=== PATIENT | female | born 1935 | race Caucasian/White ===

== ENCOUNTER 2019-06-08 09:39 | Observation (INO) ==
[2019-06-08] MEDS ORDERED: 0.9 % Sodium Chloride 1,000 ML IVC ONE (10:15)
[2019-06-08] MEDS ORDERED: 0.9 % Sodium Chloride 1,000 ML ONE (10:27)
[2019-06-08] MEDS ORDERED: Naloxone 0.4 MG/ML INJ IVP PRN (10:55)
[2019-06-08] MEDS ORDERED: Acetaminophen 325 MG TABLET PO PRN (11:33)
[2019-06-08] MEDS ORDERED: Ondansetron 4 MG/2 ML VIAL IVP PRN (11:33)
[2019-06-08 12:15] LABS: Basophils % 0.5 %; Eosinophils # 0.2 K/mcL (0.0-0.6); Eosinophils % 2.1 %; Hematocrit 32.1 % (35.3-44.9); Hemoglobin 10.6 g/dL (11.5-15.4); Immature Granulocytes % 0.5 % (0-4); Lymphocytes # 1.4 K/mcL (0.6-4.6); Lymphocytes % 18.3 %; Mean Corpuscular Hemoglobin 32.3 pg (28.0-33.3); Mean Corpuscular Volume 97.9 fL (83.0-100.0); Monocytes # 0.9 K/mcL (0.0-1.3); Monocytes % 11.5 %; Neutrophils # 5.1 K/mcL (1.6-8.9); Platelet Count 241 K/mcL (140-400); Red Blood Count 3.28 M/mcL (3.82-4.97); Red Cell Distribution Width 12.9 % (11.5-14.5); Segmented Neutrophils % 67.1 %; White Blood Count 7.6 K/mcL (4.3-11.1)
[2019-06-08 12:26] LABS: Prothrombin Time 11.7 Seconds (9.4-12.1)
[2019-06-08 12:37] LABS: Calcium 8.7 mg/dL (8.6-10.3); Magnesium 2.2 mg/dL (1.6-2.6); Potassium 4.4 mEq/L (3.5-5.1)
[2019-06-08] MEDS: Ringers Solution, Lactated 1,000 ML IVC SCH ×2 (19:17→19:26)
[2019-06-08] MEDS: traMADol 50 MG TABLET PO PRN (20:54)
[2019-06-08] MEDS: Carbidopa/Levodopa 25/100 TABLET PO SCH (20:54)
[2019-06-08] MEDS: Topiramate 25 MG TABLET PO SCH (20:55)
[2019-06-08] MEDS ORDERED: Primidone 50 MG TABLET PO SCH (21:00)
[2019-06-09 06:35] LABS: Basophils % 0.4 %; Eosinophils # 0.2 K/mcL (0.0-0.6); Eosinophils % 2.2 %; Hematocrit 28.5 % (35.3-44.9); Hemoglobin 9.7 g/dL (11.5-15.4); Immature Granulocytes % 0.3 % (0-4); Lymphocytes # 1.9 K/mcL (0.6-4.6); Lymphocytes % 25.2 %; Mean Corpuscular Hemoglobin 33.1 pg (28.0-33.3); Mean Corpuscular Volume 97.3 fL (83.0-100.0); Mean Platelet Volume 10.3 fL (9.4-12.4); Monocytes % 12.5 %; Neutrophils # 4.6 K/mcL (1.6-8.9); Platelet Count 257 K/mcL (140-400); Red Blood Count 2.93 M/mcL (3.82-4.97); Red Cell Distribution Width 12.9 % (11.5-14.5); Segmented Neutrophils % 59.4 %; White Blood Count 7.7 K/mcL (4.3-11.1)
[2019-06-09 06:54] LABS: BUN/Creatinine Ratio 37 (6-26); Blood Urea Nitrogen 38 mg/dL (8-23); Calcium 8.3 mg/dL (8.6-10.3); Carbon Dioxide 22 mEq/L (23-29); Chloride 108 mEq/L (98-107); Glucose 89 mg/dL (70-105); Osmolality,Calculated 285 (280-300); Potassium 4.3 mEq/L (3.5-5.1); Sodium 133 mEq/L (136-145); eGFR For African Americans > 60 (> 60); eGFR For Non-African Americans 50 (> 60)
[2019-06-09] MEDS ORDERED: Aspirin Enteric Coated 81 MG Tablet PO SCH (09:00)
[2019-06-09] MEDS: Carbidopa/Levodopa 25/100 TABLET PO SCH (09:52)
[2019-06-09] MEDS: Topiramate 25 MG TABLET PO SCH (09:52)
[2019-06-09] MEDS: traMADol 50 MG TABLET PO PRN ×2 (09:52→16:00)
[2019-06-09] MEDS: Ringers Solution, Lactated 1,000 ML IVC SCH (10:00)
[2019-06-09] MEDS ORDERED: Dexamethasone 10 MG/ML VIAL IVP ONE ×2 (10:03→15:45)
[2019-06-09 15:12] VITALS: BP 106/67
[2019-06-09] MEDS ORDERED: Dexamethasone 4 MG/ML VIAL IVP ONE (15:14)
== END 2019-06-09 16:30 | disposition critical access hospital (66) ==
LOC: 3NENU
PROVIDERS: ADMIT Pharmacist; ATTEND Pharmacist